=== PATIENT | male | born 1970 | race Caucasian/White ===

== ENCOUNTER 2018-06-21 20:59 | Emergency (ER) | payer SELFPAY ==
[2018-06-21] MEDS ORDERED: Sodium Chloride 0.9% 1,000 ML IV ONE (21:12)
[2018-06-21 21:26] LABS: BASOPHILE ABSOLUTE 0.2 Th/cumm (0-0.2); HEMATOCRIT 35.4 % (41.0-60); HEMOGLOBIN 11.8 gm/dL (12-16); LYMPHOCYTE ABSOLUTE 5.5 Th/cmm (1.5-3.0); MEAN CORPUSCULAR HEMOGLOBIN 29.8 pg (26.0-30.0); MEAN CORPUSCULAR HGB CONC 33.4 pg (28.0-36.0); MEAN PLATELET VOLUME 8.3 fl; MONOCYTE ABSOLUTE 0.2 Th/cmm (0.3-1.0); NEUTROPHILE ABSOLUTE 1.7 Th/cmm (1.8-8.0); PLATELET COUNT 61 Th/cmm (150-400); RED BLOOD COUNT 3.98 Mil/cmm (4.30-5.70); RED CELL DISTRIBUTION WIDTH 19.7 % (11.5-20.0); WHITE BLOOD COUNT 7.6 Th/cmm (4.8-10.8)
--- NOTE | 2018-06-21 21:27 | ED Physician Chart ---
ED Chief Complaint/HPI - Patient Information Date Seen:: 06/21/18 Time Seen:: 21:20 Chief Complaint:: abdominal pain, etoh use History of Present Illness:: location: abdomen quality: sharp pain severity: mild duration: one day context: pt with chronic history of ethanol use. has been drinking today. reports onset of sharp abdominal pain. points to epigastric, umbilical region. no vomiting or diarrhea reported. no fever, no CP, no SOB reported. ambulance medics report stable vitals signs during transport. on arrival pt still reports abdominal pain, no vomiting, no diarrhea. mod factors: none assoc s/s: none hx from pt and EMS. Allergies:: Allergies Allergy/AdvReac Type Severity Reaction Status Date / Time No Known Allergies Allergy Verified 06/21/18 21:07 Vitals:: Vital Signs - 8 hr 06/21/18 21:08 Temp 98.1 F HR 105 RR 18 BP 139/88 O2 Sat % 96 Historian:: Patient, EMS Review:: Nurse's Note Reviewed, EMS run form Reviewed ED Review of Systems - Review of Systems General/Constitutional: No fever, No edema, No loss of appetite Skin: No rash, No bruising Eyes: No diplopia ENT: No nasal drainage Neck: No neck pain Cardio Vascular: No chest pain, No edema Pulmonary: No SOB, No cough, No wheezing GI: Nausea, No vomiting, No diarrhea, Pain G/U: No dysuria Musculoskeletal: No bone or joint pain Psychiatric: No prior psych history Allergic/Immuno: No angioedema Neurological: No syncope, No seizure ED Past Medical History - Past Medical History Past Medical History: No significant medical hx Family History: None Social History: Alcohol, Single, Lives Alone Surgical History: None Psychiatricy History: None Medication: None Family Medical History - Family Member Mother History Unknown: Yes ED Physical Exam - Physical Examination General/Constitutional: Awake, Well-developed, well-nourished, Alert (slightly slurred speech, smells of etoh), No distress, GCS 15, Non-toxic appearing, Ambulatory Head: Atraumatic Eyes: Lids, conjuctiva normal, PERRL, EOMI Skin: Nl inspection, No skin lesions, Well hydrated ENMT: External ears, nose nl, Nasal exam nl, Oropharynx nl, Tonsils nl (smells of etoh) Neck: Nontender, Full ROM w/o pain, No nuchal rigidity Respiratory: Nl effort/Exclusion, Clear to Auscultation, No Wheeze/Rhonchi/Rales Cardio Vascular: RRR, No murmur, gallop, rubs, NL S1 S2 GI: No tenderness/rebounding/guarding (tender epigastrium region, no rebound, no guarding, abdomen is scaphoid, normal bowel sounds), Normal BS's, Nondistended, No mass/bruits, No McBurney tenderness : No CVA tenderness Extremities: No tenderness or effusion Neuro/Psych: Normal sensory exam, Normal motor strength, Judgement/insight normal (pt is awake, alert, answers questions with slightly slurred speech. appears inebriated at MD exam. CN 2-12 grossly intact. no acute deficits. ), No focal deficits Misc: Normal back, No paraspinal tenderness ED Labs/Radiology/EKG Results - Lab Results Results: Laboratory Tests 06/21/18 06/21/18 06/21/18 21:18 21:18 21:40 WBC 7.6 RBC 3.98 L Hgb 11.8 L Hct 35.4 L MCV 89.0 MCH 29.8 MCHC Differential 33.4 RDW 19.7 Plt Count 61 L MPV 8.3 Neutrophils % 22.2 L Lymphocytes % 71.8 H Monocytes % 3.2 Eosinophils % 0.3 Basophils % 2.5 H Sodium 137 Potassium 3.6 Chloride 102 Carbon Dioxide 23.7 Anion Gap 14.9 BUN 10 Creatinine 0.5 L Est GFR ( Amer) > 60.0 Est GFR (Non-Af Amer) > 60.0 BUN/Creatinine Ratio 20.0 Glucose 102 Calcium 8.8 Total Bilirubin 1.3 H AST 90 H ALT 49 Alkaline Phosphatase 184 H Total Protein 8.2 Albumin 4.0 L Globulin 4.2 Albumin/Globulin Ratio 1.0 Lipase 33 Urine Source RANDOM Urine Color YELLOW Urine Clarity CLEAR Urine pH 6.0 Ur Specific [place] <= 1.005 Urine Protein NEGATIVE Urine Glucose (UA) NEGATIVE Urine Ketones NEGATIVE Urine Blood NEGATIVE Urine Nitrate NEGATIVE Urine Bilirubin NEGATIVE Urine Urobilinogen 0.2 Ur Leukocyte Esterase NEGATIVE Urine Opiates Screen Urine Methadone Screen Ur Barbiturates Screen Ur Tricyclics Screen Ur Phencyclidine Scrn Amphetamines Screen U Methamphetamines Scrn U Benzodiazepines Scrn U Cocaine Metab Screen U Cannabinoids Screen Ethyl Alcohol 426 H 06/21/18 21:40 WBC RBC Hgb Hct MCV MCH MCHC Differential RDW Plt Count MPV Neutrophils % Lymphocytes % Monocytes % Eosinophils % Basophils % Sodium Potassium Chloride Carbon Dioxide Anion Gap BUN Creatinine Est GFR ( Amer) Est GFR (Non-Af Amer) BUN/Creatinine Ratio Glucose Calcium Total Bilirubin AST ALT Alkaline Phosphatase Total Protein Albumin Globulin Albumin/Globulin Ratio Lipase Urine Source Urine Color Urine Clarity Urine pH Ur Specific [place] Urine Protein Urine Glucose (UA) Urine Ketones Urine Blood Urine Nitrate Urine Bilirubin Urine Urobilinogen Ur Leukocyte Esterase Urine Opiates Screen NEGATIVE Urine Methadone Screen NEGATIVE Ur Barbiturates Screen NEGATIVE Ur Tricyclics Screen NEGATIVE Ur Phencyclidine Scrn NEGATIVE Amphetamines Screen NEGATIVE U Methamphetamines Scrn NEGATIVE U Benzodiazepines Scrn NEGATIVE U Cocaine Metab Screen NEGATIVE U Cannabinoids Screen NEGATIVE Ethyl Alcohol ED Assessment - Assessment General Assessment: pt stable while in ER. ED Septic Shock - . Is Septic Shock (SBP<90, OR Lactate>4 mmol\L) present?: No - <6hrs of presentation: Vital Signs: Vital Signs - 8 hr 06/21/18 21:08 Temp 98.1 F HR 105 RR 18 BP 139/88 O2 Sat % 96 Assessment of Lungs: Lung CTA bilateral Assessment of Heart: RRR Capillary refill evaluation: Capillary refill < 2 secs Skin Exam: Warm, Dry, Good [place]urg[place] ED Reassessment (Disposition) - Reassessment Reassessment:: medical decision making pt with regular ethanol use, now today with ethanol use and abdominal pain. no hematemesis, no vomiting. pt is re-examined, no abdominal pain. no vomiting in ER pt is comfortable, no pain complaint at recheck Reassessment Condition:: Improved - Diagnosis Diagnosis:: ethanol intoxication, improved - Aftercare/Follow up Instructions Aftercare/Follow-Up Instructions:: Refer to Discharge Instructions - Patient Disposition Discharge/Transfer:: Home Condition at Disposition:: Stable, Improved
[2018-06-21 21:29] LABS: % NEUTROPHILS 22.2 % (40.0-80.0)
[2018-06-21 21:30] LABS: % BASOPHILS 2.5 % (0.0-2.0); % EOSINOPHILS 0.3 % (0.0-5.0); % LYMPHOCYTES 71.8 % (20.0-50.0); % MONOCYTES 3.2 % (2.0-10.0)
[2018-06-21 21:40] LABS: ALKALINE PHOSPHATASE 184 U/L (34-104); ANION GAP 14.9 (7.0-16.0); BILIRUBIN,TOTAL 1.3 mg/dL (0.3-1.0); BUN - UREA NITROGEN 10 mg/dL (7-25); CALCIUM SERUM 8.8 mg/dL (8.6-10.3); CARBON DIOXIDE 23.7 mEq/L (21.0-31.0); CHLORIDE 102 mEq/L (98-107); CREATININE - SERUM 0.5 mg/dL (0.7-1.3); GFR AFRICAN-AMERICAN > 60.0 ml/min (>90); GFR NON AFRICAN-AMERICAN > 60.0 ml/min; GLUCOSE 102 mg/dL (70-105); LIPASE 33 U/L (11-82); POTASSIUM SERUM 3.6 mEq/L (3.5-5.1); SGOT 90 U/L (13-39); SGPT/ALT 49 U/L (7-52); SODIUM SERUM 137 mEq/L (136-145); TOTAL PROTEIN,SERUM 8.2 gm/dL (6.0-8.3)
[2018-06-21 22:04] LABS: URINE SOURCE RANDOM
[2018-06-21 22:17] LABS: AMPHETAMINE URINE NEGATIVE (NEGATIVE); BARBITURATES URINE NEGATIVE (NEGATIVE); BENZODIAZEPINES QUAL URINE NEGATIVE (NEGATIVE); CANNABINOID THC NEGATIVE (NEGATIVE); COCAINE METABOLITE QUAL URINE NEGATIVE (NEGATIVE); METHADONE URINE NEGATIVE (NEGATIVE); METHAMPHETAMINES QUAL URINE NEGATIVE (NEGATIVE); OPIATES (MORPHINE) QUAL. URINE NEGATIVE (NEGATIVE); PHENCYCLIDINE (PCP) URINE NEGATIVE (NEGATIVE); TRICYCLICS (TCA) QUAL. URINE NEGATIVE (NEGATIVE)
[2018-06-21 22:20] LABS: URINE BILIRUBIN NEGATIVE (NEGATIVE); URINE BLOOD NEGATIVE (NEGATIVE); URINE GLUCOSE (UA) NEGATIVE (NEGATIVE); URINE KETONE NEGATIVE (NEGATIVE); URINE LEUKOCYTE ESTERASE NEGATIVE (NEGATIVE); URINE NITRATE NEGATIVE (NEGATIVE); URINE PROTEIN NEGATIVE (NEGATIVE); URINE UROBILINOGEN 0.2 E.U./dL (0.2 - 1.0)
[2018-06-21 22:21] LABS: URINE CLARITY CLEAR (CLEAR); URINE COLOR YELLOW
[2018-06-21 22:22] LABS: URINE MICROSCOPIC INDICATED? NO
== END 2018-06-22 06:10 | disposition home or self-care (01) ==
LOC: EDBD 20:59 → ER 20:59
DX: F10.129 Alcohol abuse with intoxication, unspecified (principal); R10.13 Epigastric pain; Y90.8 Blood alcohol level of 240 mg/100 ml or more; Z59.0 Homelessness
CPT/HCPCS: 36415-UA; 80053-TC; 80307; 80320-TC; 81003-TC; 83690-TC; 85007-TC; 85025-TC; 93005; J7030; Z7502